=== PATIENT | male | born 1965 | race Caucasian/White ===

== ENCOUNTER 2020-03-27 08:13 | Emergency (ER) | payer BC ==
[2020-03-27 08:23] VITALS: TEMP 98.5
--- NOTE | 2020-03-27 08:44 | ED ---
Fall HPI - General Chief Complaint: Fall Stated Complaint: fall, back pain Time Seen by Provider: 03/27/20 08:30 Source: patient, RN notes reviewed Mode of arrival: ambulatory Limitations: no limitations - History of Present Illness Initial Comments: This a 54-year-old male presents emergency Department with chief complaint of a fall. Patient states he tripped and fell onto a metal chandu yesterday. Patient went of left sided posterior rib pain. Patient denies any head injury no midline back pain. Denies any bowel, bladder incontinence or retention or saddle anesthesias. No lower shunted paresthesias. Patient states that the pain is worse with deep inspiration and twisting. He states he does not feel short of breath at rest. - Related Data Home Medications Medication Instructions Recorded Confirmed No Known Home Medications 03/27/20 03/27/20 Allergies Allergy/AdvReac Type Severity Reaction Status Date / Time Penicillins Allergy Rash/Hives Verified 03/27/20 09:34 shellfish derived Allergy Rash/Hives Verified 03/27/20 09:34 Review of Systems ROS Statement: Those systems with pertinent positive or pertinent negative responses have been documented in the HPI. ROS Other: All systems not noted in ROS Statement are negative. Past Medical History Past Medical History: Diabetes Mellitus History of Any Multi-Drug Resistant Organisms: None Reported Past Surgical History: No Surgical Hx Reported Smoking Status: Current every day smoker Past Alcohol Use History: None Reported Past Drug Use History: Marijuana General Exam Limitations: no limitations General appearance: alert, in no apparent distress Head exam: Present: atraumatic, normocephalic, normal inspection Eye exam: Present: normal appearance, PERRL, EOMI. Absent: scleral icterus, conjunctival injection, periorbital swelling ENT exam: Present: normal exam, normal oropharynx, mucous membranes moist Neck exam: Present: normal inspection, full ROM. Absent: tenderness, meningismus, lymphadenopathy Respiratory exam: Present: normal lung sounds bilaterally, chest wall tenderness (Left lateral posterior rib tenderness the lower aspect). Absent: respiratory distress, wheezes, rales, rhonchi, stridor Cardiovascular Exam: Present: regular rate, normal rhythm, normal heart sounds. Absent: systolic murmur, diastolic murmur, rubs, gallop, clicks GI/Abdominal exam: Present: soft, normal bowel sounds. Absent: distended, tende rness, guarding, rebound, rigid Extremities exam: Present: normal inspection, full ROM, normal capillary refill. Absent: tenderness, pedal edema, joint swelling, calf tenderness Back exam: Present: full ROM, tenderness. Absent: paraspinal tenderness, vertebral tenderness Neurological exam: Present: alert, oriented X3, CN II-XII intact Skin exam: Present: warm, dry, intact, normal color. Absent: rash Course Vital Signs 03/27/20 08:19 Temperature 98.5 F Pulse Rate 78 Respiratory 16 Rate Blood Pressure 130/79 O2 Sat by Pulse 99 Oximetry Medical Decision Making - Medical Decision Making 54-year-old male presented for a fall patient's x-rays obtained no definite acute fracture. Patient's we discharged in stable condition vitals are stable patient offered pain meds patient declined. Disposition Clinical Impression: Fall, Contusion of rib on left side Disposition: HOME SELF-CARE Condition: Stable Instructions (If sedation given, give patient instructions): Rib Contusion (ED) Additional Instructions: Please return to the Emergency Department if symptoms worsen or any other concerns. Is patient prescribed a controlled substance at d/c from ED?: No Referrals: Miguel Shaikh MD [Primary Care Provider] - 1-2 days Time of Disposition: 09:59
--- NOTE | 2020-03-27 09:57 | XR ---
Chest x-ray with left RIBS HISTORY: Trauma and pain Frontal view of the chest, 5 views of the left ribs and total of 6 images There is no pneumothorax or pleural effusion. No evident displaced rib fracture. Cardiac mediastinal silhouette is within normal limits. IMPRESSION: No acute cardiopulmonary disease. Bone scan could be performed for increased sensitivity for occult fracture as indicated.
[2020-03-27 10:08] VITALS: BP 148/90; PULSE 72; RESP 18
== END 2020-03-27 10:03 | disposition home or self-care (01) ==
LOC: EC 08:13
DX: S20.212A Contusion of left front wall of thorax, initial encounter (principal); E11.9 Type 2 diabetes mellitus without complications; F17.200 Nicotine dependence, unspecified, uncomplicated; Z88.0 Allergy status to penicillin; Z91.013 Allergy to seafood; W01.0XXA Fall on same level from slipping, tripping and stumbling without subsequent striking against object, initial encounter
CPT/HCPCS: 99283